=== PATIENT | female | born 1970 | race Caucasian/White ===

== ENCOUNTER 2019-11-04 13:35 | Emergency (ER) | payer OTHER, SELFPAY ==
[2019-11-04 13:41] VITALS: BP 114/63; PULSE 70; RESP 20; TEMP 36.3; O2SAT 100
--- NOTE | 2019-11-04 14:33 | ED.DENTAL ---
HPI - Dental/Oral General Chief complaint: Dental/Oral Stated complaint: tooth ache Time Seen by Provider: 11/04/19 14:33 Source: patient and RN notes reviewed Mode of arrival: ambulatory Limitations: no limitations History of Present Illness HPI Narrative: 49 year old female who presents to [facility] care with complaints of dental pain to 2 left upper molars for the past week. Patient has poor dentition with numerous teeth missing and dental caries noted. Patient states that she has been unable to eat anything but soups and mashed potatoes for the past 4 days because she is having so much dental discomfort and eating anything she has to chew is impossible. left upper molars # 13 & 14 noted to have decay with #13 tooth actually loose, redness and swelling of gums surrounding these teeth and also in top of mouth on the left side near noted teeth. Patient is tearful stating pain is 10/10, sharp throbbing, has been taking Tylenol and Motrin with no decrease in her discomfort. MD Complaint: tooth pain Location: Tooth # (13,14) Onset (ago): week(s) (1) Duration: constant Severity: severe Severity scale (1-10): >10 Relieving factors: nothing Exacerbating factors: chewing and cold Context: history of dental caries and poor dental care Associated symptoms: gum swelling Treatment prior to arrival: topical analgesic and oral analgesic Related Data Home Medications Medication Instructions Recorded Confirmed umeclidinium [Incruse Ellipta] 1 inh INHALATION DAILY 11/04/19 11/04/19 Allergies Allergy/AdvReac Type Severity Reaction Status Date / Time erythromycin base AdvReac Nausea and Verified 11/04/19 13:49 Vomiting Review of Systems Review of Systems: Narrative: CONSTITUTIONAL: Denies fever, chills, or sweats. EYES: Denies visual changes, redness, or discharge. ENT: Denies rhinorrhea, congestion, sore throat, or otalgia.acute dental pain with dental caries CARDIOVASCULAR: Denies chest pain, palpitations, or edema. RESPIRATORY: Denies cough or dyspnea. GASTROINTESTINAL: Denies abdominal pain, nausea, vomiting, or diarrhea. GENITOURINARY: Denies dysuria or hematuria. SKIN: Denies rash or itching. MUSCULOSKELETAL: Denies back pain, joint pain, or myalgia. NEUROLOGIC: Denies headache, numbness, or weakness. PSYCHIATRIC: Denies anxiety or depression. All systems reviewed & are unremarkable except as noted in HPI and below PMFSH Past Medical History Medical History (Updated 11/06/19 @ 15:14 by Yudelka Jnoes NP) COPD (chronic obstructive pulmonary disease) Surgical History Surgical History (Updated 11/06/19 @ 15:15 by Yudelka Jones NP) History of lumpectomy of left breast Social History Social History (Updated 11/06/19 @ 15:18 by Yudelka Jones NP) Smoking packs per day: 1 Smoking cigarettes per day: 20.0 Years smoked: 35 Smoking pack-years: 35.00 Smoking status: Current every day smoker Tobacco type: cigarettes Living arrangements: alone Gender identity (if verbalized by the patient): Female Comments At time of signature, agree with nursing past medical, surgical, social history. There is no relevant family history pertinent to the presenting complaint Exam Narrative: Exam Narrative: GENERAL: Well-appearing, well-nourished, and in no acute distress. HEAD: Normocephalic, atraumatic. EYES: PERRLA and EOMI. ENT: Nares clear, no rhinorrhea or epistaxis. Mucous membranes moist.#13 and #14 teeth with caries with gums red and swollen and redness to top of mouth on left side, #13 tooth actually is loose, numerous teeth missing with poor dentition of remaining teeth. NECK: Supple.no lymphadenopathy CHEST: Clear to auscultation. No respiratory distress.SAO2 100% on room air HEART: Regular rate and rhythm. No murmur heard. Normal peripheral pulses. ABDOMEN: Soft, nontender, nondistended, normal active bowel sounds. EXTREMITIES: Normal range of motion. No edema. SKIN: Warm, dry, no rash. NEURO: No foc
== END 2019-11-04 15:05 | disposition home or self-care (01) ==
PROVIDERS: Emergency Provider Registered Nurse; PCP Internal Medicine
DX: K08.89 Other specified disorders of teeth and supporting structures (principal); K04.7 Periapical abscess without sinus; J44.9 Chronic obstructive pulmonary disease, unspecified
CPT/HCPCS: 99213; G0463

== ENCOUNTER 2021-09-22 12:41 | Emergency (ER) | payer OTHER, SELFPAY ==
--- NOTE | 2021-09-22 12:53 | ED.SOB ---
HPI - SOB/Dyspnea General Chief Complaint: Upper Respiratory Infection Stated Complaint: Shortness of Breath/Asthma Time Seen by Provider: 09/22/21 12:54 Source: patient and RN notes reviewed Mode of arrival: ambulatory Limitations: no limitations History of Present Illness HPI Narrative: 51-year-old female presents concern for shortness of breath. She reports history of COPD, she got cold systems approximately 1 week ago and recently started having increased shortness of breath, work of breathing, wheezing. Reports she has been using her rescue inhaler and her at home daily medications without relief. She denies fever, body aches, chills, sweats. She has been vaccinated for COVID. MD elicited complaint: shortness of breath Related Data Home Medications Medication Instructions Recorded Confirmed umeclidinium [Incruse Ellipta] 1 inh INHALATION DAILY 11/04/19 11/04/19 albuterol sulfate INHALATION 09/22/21 citalopram mg 09/22/21 fluticasone propion-salmeterol inh INHALATION 09/22/21 fluticasone propion-salmeterol INHALATION 09/22/21 [Wixela Inhub] gabapentin 09/22/21 tiotropium bromide [Spiriva with INHALATION 09/22/21 HandiHaler] trazodone 09/22/21 Allergies Allergy/AdvReac Type Severity Reaction Status Date / Time erythromycin base AdvReac Nausea and Verified 11/04/19 13:49 Vomiting Review of Systems Review of Systems: CONSTITUTIONAL: Reports malaise. Denies chills, sweats, or fever. EYES: Denies visual changes, redness, or discharge. ENT: Reports rhinorrhea, congestion CARDIOVASCULAR: Denies chest pain, palpitations, or edema. RESPIRATORY: Reports cough, wheezing, dyspnea. GASTROINTESTINAL: Denies abdominal pain, nausea, vomiting, diarrhea SKIN: Denies rash or itching. MUSCULOSKELETAL: Denies myalgia. NEUROLOGIC: Denies headache. All systems reviewed & are unremarkable except as noted in HPI and below PMFSH Past Medical History Medical History (Updated 09/22/21 @ 13:34 by Genesis Rodriguez NP) COPD (chronic obstructive pulmonary disease) Surgical History Surgical History (Updated 11/06/19 @ 15:15 by Yudelka Jones NP) History of lumpectomy of left breast Social History Social History (Updated 11/06/19 @ 15:18 by Yudelka Jones NP) Smoking packs per day: 1 Smoking cigarettes per day: 20.0 Years smoked: 35 Smoking pack-years: 35.00 Smoking status: Current every day smoker Tobacco type: cigarettes Gender identity (if verbalized by the patient): Female Comments At time of signature, agree with nursing past medical, surgical, social and family history. There is no relevant family history pertinent to the presenting complaint Exam Narrative: GENERAL: Well-appearing, well-nourished, and in no acute distress. HEAD: Normocephalic EYES: PERRLA, conjunctivae clear ENT: Nares clear. Mucous membranes moist. Oropharynx not erythematous without lesions. Tonsils not enlarged and without exudate, no drooling, no hoarseness, no trismus, uvula midline. NECK: Supple. No lymphadenopathy CHEST: Scattered inspiratory and expiratory wheeze, aeration fair. No rhonchi, rales, or stridor. Patient in slightly tripod position, tachypneic HEART: Regular rate and rhythm. No murmur heard. SKIN: Warm, dry, no rash. NEURO: Alert and oriented x3. PSYCH: Normal mood and affect Course Course Emergency Course: Patient is aware of diagnosis, understands and agrees to treatment plan. Anticipatory guidance given. Patient agrees to follow-up as directed and is aware of reasons to seek care at the emergency department. Portions of this record may have been created with voice recognition software Level of Care: Express Care Visit Reevaluation(s) Reevaluation #1: No conversational dyspnea, tachypnea slightly improved, aeration improved, wheezing greatly improved after DuoNeb and Solu-Medrol IM Date: 09/22/21 Time: 13:29 Vital Signs Vital signs: Reviewed. MDM - SOB/Dyspnea MDM Narrative
[2021-09-22 12:56] VITALS: BP 111/62; PULSE 71; RESP 26; TEMP 36.9; O2SAT 98
[2021-09-22 12:59] VITALS: BP 111/62; PULSE 71; RESP 26; TEMP 36.9; O2SAT 98
[2021-09-22] MEDS: IPRATROPIUM BR 0.02% INH SOLN 0.5 MG/2.5 ML VIAL INHALATION (13:05)
[2021-09-22] MEDS: ALBUTEROL SULFATE NEB 2.5 MG/3 ML INH INHALATION (13:05)
[2021-09-22] MEDS: methylPREDNISolone ACETATE 40 MG/ML VIAL IM (13:09)
[2021-09-22 13:40] VITALS: PULSE 80; RESP 20; O2SAT 100
== END 2021-09-22 13:40 | disposition home or self-care (01) ==
PROVIDERS: Emergency Provider Nurse Practitioner
DX: R06.02 Shortness of breath (principal); J44.9 Chronic obstructive pulmonary disease, unspecified; F17.210 Nicotine dependence, cigarettes, uncomplicated
CPT/HCPCS: 94640; 96372; 99213; G0463; J1030

== ENCOUNTER 2022-07-04 08:03 | Emergency (ER) | payer OTHER, SELFPAY ==
--- NOTE | 2022-07-04 08:06 | ED.SKABFB ---
HPI - Skin/Abscess/Foreign Bdy General Chief complaint: Skin/Abscess/Foreign Body Stated complaint: poss lice / infection in back of head Time Seen by Provider: 07/04/22 08:29 Source: patient and RN notes reviewed Mode of arrival: ambulatory Limitations: no limitations History of Present Illness HPI narrative: 51-year-old female presents with concern for a wound on her head. Reports she had lice about a week ago, she treated lysis. Reports however she had been scratching her head and caused a wound that she thinks has gotten infected. She reports pain, drainage on the back of her scalp. She reports general malaise and fatigue. She denies fever. MD complaint: abscess/boil Related Data Home Medications Medication Instructions Recorded Confirmed umeclidinium 62.5 mcg/actuation 1 inh inhalation DAILY 11/04/19 09/22/21 blister powder for inhalation (Incruse Ellipta) albuterol sulfate 90 mcg/actuation 2 inh inhalation TID PRN Shortness 09/22/21 09/22/21 aerosol inhaler Of Breath citalopram 40 mg tablet 40 mg PO DAILY 09/22/21 09/22/21 fluticasone 250 mcg-salmeterol 50 2 inh inhalation DAILY 09/22/21 09/22/21 mcg/dose blistr powdr for inhalation (Wixela Inhub) fluticasone 55 mcg-salmeterol 14 1 inh inhalation BID 09/22/21 09/22/21 mcg/actuation breath activated powder tiotropium bromide 18 mcg capsule 1 cap inhalation DAILY 09/22/21 09/22/21 with inhalation device (Spiriva with HandiHaler) trazodone 100 mg tablet 100 mg PO DAILY 09/22/21 09/22/21 Allergies Allergy/AdvReac Type Severity Reaction Status Date / Time erythromycin base Allergy Rash Verified 09/22/21 16:13 clindamycin AdvReac Diarrhea Verified 09/22/21 16:13 Review of Systems Review of Systems: CONSTITUTIONAL: Reports malaise, fatigue. Denies chills, sweats, or fever. EYES: Denies redness, or discharge. ENT: Denies rhinorrhea, congestion, swollen lips, swollen tongue CARDIOVASCULAR: Denies chest pain, palpitations, or edema. RESPIRATORY: Denies cough or dyspnea. GASTROINTESTINAL: Denies abdominal pain, nausea, vomiting SKIN: Reports tender area on the back of her scalp with purulent drainage MUSCULOSKELETAL: Denies joint pain or myalgia. NEUROLOGIC: Denies headache. All systems reviewed & are unremarkable except as noted in HPI and below PMFSH Past Medical History Medical History (Updated 07/04/22 @ 08:27 by Genesis Rodriguez NP) COPD (chronic obstructive pulmonary disease) Surgical History Surgical History (Updated 11/06/19 @ 15:15 by Yudelka Jones NP) History of lumpectomy of left breast Social History Social History (Updated 11/06/19 @ 15:18 by Yudelka Jones NP) Smoking packs per day: 1 Smoking cigarettes per day: 20.0 Years smoked: 35 Smoking pack-years: 35.00 Smoking status: Current every day smoker Tobacco type: cigarettes Gender identity (if verbalized by the patient): Female Comments At time of signature, agree with nursing past medical, surgical, social and family history. There is no relevant family history pertinent to the presenting complaint Exam Narrative: GENERAL: Well-appearing, well-nourished, and in no acute distress. HEAD: Normocephalic, atraumatic. EYES: PERRLA, conjunctivae clear, and EOMI. ENT: Mucous membranes moist. NECK: Supple. No lymphadenopathy CHEST: Clear to auscultation. No respiratory distress. HEART: Regular rate and rhythm. SKIN: Warm, dry. 0.5 cm wound noted to the posterior scalp with pink tissue bed with yellow purulence drainage. Approximately 1 cm surrounding area of induration without fluctuation noted. No nits or lice noted NEURO: Alert and oriented x3. PSYCH: Normal mood and affect Course Course Emergency Course: Patient is aware of diagnosis, understands and agrees to treatment plan. Anticipatory guidance given. Patient agrees to follow-up as directed and is aware of reasons to seek care at the emergency department. Portions of this
[2022-07-04 08:11] VITALS: BP 122/58; PULSE 74; RESP 16; TEMP 37.2; O2SAT 100
== END 2022-07-04 08:40 | disposition home or self-care (01) ==
PROVIDERS: Emergency Provider Nurse Practitioner; PCP Internal Medicine
DX: L08.9 Local infection of the skin and subcutaneous tissue, unspecified (principal); J44.9 Chronic obstructive pulmonary disease, unspecified; F17.210 Nicotine dependence, cigarettes, uncomplicated
CPT/HCPCS: 87070; 87147; 87181; 87186; 87205; 99213; G0463

== ENCOUNTER 2022-12-29 09:44 | Emergency (ER) | payer OTHER, SELFPAY ==
[2022-12-29 09:53] VITALS: BP 129/61; PULSE 72; RESP 16; TEMP 37.1; O2SAT 100
--- NOTE | 2022-12-29 10:02 | ED.EYEPROB ---
HPI - Eye Problem General Chief complaint: Eye Problems Stated complaint: headache/dizzy/left eye Time Seen by Provider: 12/29/22 10:02 Source: patient and RN notes reviewed History of Present Illness HPI Narrative: Patient is a 52-year-old female who presents to urgent care with complaints of left eye swelling. Patient states that she was outside working in the [employer] yesterday but does not remember anything biting her. Patient states she has had a slight sinus headache for the last week but did not have any facial swelling. Patient denies any trauma or injury to the eye. Denies any changes in vision. No other acute complaints. No acute distress noted. Patient aware of the plan of care. Some parts of this dictation were generated by voice recognition software and may contain typographical and/or grammatical inaccuracies. Related Data Allergies Allergy/AdvReac Type Severity Reaction Status Date / Time erythromycin base Allergy Rash Verified 09/22/21 16:13 clindamycin AdvReac Diarrhea Verified 09/22/21 16:13 Review of Systems Review of Systems: CONSTITUTIONAL: Denies fever, chills, or sweats. EYES: Reports of left eye swelling ENT: Denies rhinorrhea, congestion, sore throat, or otalgia. CARDIOVASCULAR: Denies chest pain, palpitations, or edema. RESPIRATORY: Denies cough or dyspnea. GASTROINTESTINAL: Denies abdominal pain, nausea, vomiting, or diarrhea. GENITOURINARY: Denies dysuria or hematuria. SKIN: Denies rash or itching. MUSCULOSKELETAL: Denies back pain, joint pain, or myalgia. NEUROLOGIC: Denies headache, numbness, or weakness. All other systems reviewed are negative, except as documented in HPI. [facility] Past Medical History Medical History (Updated 12/29/22 @ 10:09 by ALDEN Ladd) COPD (chronic obstructive pulmonary disease) Surgical History Surgical History (Updated 11/06/19 @ 15:15 by Yudelka Jones NP) History of lumpectomy of left breast Social History Social History (Updated 11/06/19 @ 15:18 by Yudelka Jones NP) Smoking packs per day: 1 Smoking cigarettes per day: 20.0 Years smoked: 35 Smoking pack-years: 35.00 Smoking status: Current every day smoker Tobacco type: cigarettes Living arrangements: alone Gender identity (if verbalized by the patient): Female Comments At the time of my signature, I reviewed and agree with the nursing past medical, surgical, social, and family history. There is no relevant family history pertinent to the patient complaint. Exam Narrative: GENERAL: This is a well-nourished, well-developed patient, in no apparent distress. HEAD: normocephalic, atraumatic. Mild to moderate edema to the left cheek without ecchymosis or erythema EYES: PERRL. Bilateral Sclera clear/white. Vision is grossly intact. [id number] lower left eyelid edema, mild upper left eyelid edema without erythema. EARS: External ears normal, auditory canals clear and without drainage, TMs normal without perforation. Hearing grossly intact. NOSE: External nose normal with no obvious nasal discharge, nares without redness, no rhinorrhea. THROAT: Mucous membranes moist, posterior pharynx clear. NECK: Neck supple SKIN: warm, intact with no suspicious lesions or rash, good texture and turgor. NEURO: awake, alert, and oriented to person, place and time. There were no obvious focal neurologic abnormalities. EXTREMITIES: No clubbing, cyanosis, or edema. Course Course Level of Care: Express Care Visit Vital Signs Vital signs: Vital Signs Temperature 98.8 F 12/29/22 09:53 Pulse Rate 72 12/29/22 09:53 Respiratory Rate 16 12/29/22 09:53 Blood Pressure 129/61 12/29/22 09:53 Pulse Oximetry 100 12/29/22 09:53 Oxygen Delivery Room Air 12/29/22 09:53 Temperature 98.8 F 12/29/22 09:53 Pulse Rate 72 12/29/22 09:53 Respiratory Rate 16 12/29/22 09:53 Blood Pressure 129/61 12/29/22 09:53 Pulse Oximetry 100 12/29/22 09:53 Oxygen D
== END 2022-12-29 10:24 | disposition home or self-care (01) ==
PROVIDERS: Emergency Provider Nurse Practitioner Family
DX: L03.213 Periorbital cellulitis (principal); F17.210 Nicotine dependence, cigarettes, uncomplicated; J44.9 Chronic obstructive pulmonary disease, unspecified
CPT/HCPCS: 99213; G0463

== ENCOUNTER 2023-04-06 16:12 | Emergency (ER) | payer OTHER, SELFPAY ==
[2023-04-06 16:25] VITALS: BP 118/70; PULSE 79; RESP 16; TEMP 36.8; O2SAT 100
--- NOTE | 2023-04-06 17:11 | ED.SKABFB ---
HPI - Skin/Abscess/Foreign Bdy General Chief complaint: Skin/Abscess/Foreign Body Stated complaint: boil on left leg Source: patient Mode of arrival: ambulatory Limitations: no limitations History of Present Illness HPI narrative: 52-year-old female presents for complaint of abscess to the left lower leg. Endorses redness and tenderness. She states she has been getting boils to her skin, mostly the legs, over the past few years. She has been applying Neosporin, Prid, and using heating pad. She states the sites burst on her own. She states this one drained yesterday after using heating pad. She denies any other locations of active abscesses at this time. She denies nausea, vomiting, fevers or chills. She does not have a PCP at this time. Related Data Allergies Allergy/AdvReac Type Severity Reaction Status Date / Time erythromycin base Allergy Rash Verified 09/22/21 16:13 clindamycin AdvReac Diarrhea Verified 09/22/21 16:13 Review of Systems Review of Systems: CONSTITUTIONAL: Denies body aches, fever, chills, or sweats. EYES: Denies visual changes, redness, or discharge. ENT: Denies rhinorrhea, congestion CARDIOVASCULAR: Denies chest pain, palpitations, or edema. RESPIRATORY: Denies cough or dyspnea. GASTROINTESTINAL: Denies abdominal pain, nausea, vomiting, or diarrhea. SKIN: reports boil left lower leg MUSCULOSKELETAL: Denies back pain, joint pain, or myalgia. NEUROLOGIC: Denies headache, numbness, tingling, or weakness. [facility] Past Medical History Medical History COPD (chronic obstructive pulmonary disease) Surgical History Surgical History History of lumpectomy of left breast Social History Social History Smoking packs per day: 1 Smoking cigarettes per day: 20.0 Years smoked: 35 Smoking pack-years: 35.00 Smoking status: Current every day smoker Tobacco type: cigarettes Living arrangements: alone Gender identity (if verbalized by the patient): Female Comments At time of signature, I have reviewed and agree with nursing past medical, surgical, social and family history unless otherwise noted. Please see nursing chart for further information. There is no relevant family history pertinent to the presenting complaint Exam Narrative: GENERAL: Well-appearing HEAD: Normocephalic, atraumatic. EYES: conjunctivae clear, and EOMI. ENT: Mucous membranes moist. Oropharynx without edema, erythema or lesions. NECK: Supple. No lymphadenopathy CHEST: Clear to auscultation. HEART: Regular rate and rhythm. SKIN: Warm, dry. left lateral lower leg with 2 cm erythematous firm abscess.Mild tenderness. No fluctuance, surrounding induration, or active drainage. NEURO: Alert and oriented x3. Course Course Emergency Course: Patient is aware of diagnosis, understands and agrees to treatment plan. Anticipatory guidance given. Patient agrees to follow-up as directed and is aware of reasons to seek care at the emergency department. Portions of this record may have been created with voice recognition software Level of Care: Express Care Visit Vital Signs Vital signs: Vital Signs Temperature 98.3 F 04/06/23 16:25 Pulse Rate 79 04/06/23 16:25 Respiratory Rate 16 04/06/23 16:25 Blood Pressure 118/70 04/06/23 16:25 Pulse Oximetry 100 04/06/23 16:25 Oxygen Delivery Room Air 04/06/23 16:25 Temperature 98.3 F 04/06/23 16:25 Pulse Rate 79 04/06/23 16:25 Respiratory Rate 16 04/06/23 16:25 Blood Pressure 118/70 04/06/23 16:25 Pulse Oximetry 100 04/06/23 16:25 Oxygen Delivery Room Air 04/06/23 16:25 Reviewed MDM - Skin/Abscess/Foreign Bdy MDM Narrative Medical decision making narrative: Discussed physical exam findings, no indication for I&D at this time. Rx abx. Advised suppo
== END 2023-04-06 17:17 | disposition home or self-care (01) ==
PROVIDERS: Emergency Provider Nurse Practitioner Family
DX: L02.416 Cutaneous abscess of left lower limb (principal); F17.210 Nicotine dependence, cigarettes, uncomplicated; J44.9 Chronic obstructive pulmonary disease, unspecified
CPT/HCPCS: 99213; G0463

== ENCOUNTER 2025-02-08 09:39 | Emergency (ER) | payer OTHER, SELFPAY ==
--- OUTSIDE RECORDS SUMMARY | 2025-02-08 09:41 | XMS_ITS | Clinical Summary ---
Author Organization [facility] Address [address] [place] [address] Care Team Providers Care Inspector [employer] Name Role Phone Tia Pyle ALVARO Primary Care Provider [phone] Allergies Active Allergy Reactions Criticality Noted Date Comments Clindamycin Diarrhea Medium 08/15/2023 C diff Erythromycin Nausea & Vomiting Low 11/04/2018 Sertraline Mental status changes High 08/15/2023 Suicidal thoughts Medications albuterol 2.5 mg /3 mL (0.083 %) nebulizer solutionIndicat ions:Moderate persistent asthma, unspecified whether complicated Take 3 mL (2.5 mg total) by nebulization every 6 (six) hours as needed for wheezing 75 mL 08/15/19 24 Active aspirin 81 mg chewable tabletIndicatio ns:Thrombocytos is Take 1 tablet (81 mg total) by mouth daily 30 tablet 07/26/19 25 026 Active albuterol HFA (PROVENTIL HFA,VENTOLIN HFA,PROAIR HFA) 90 mcg/actuation inhalerIndicati ons:Moderate persistent asthma, unspecified whether complicated Inhale 2 puffs every 4 (four) hours as needed for wheezing 2 each 2 11/22/19 25 Active fluticasone propion-salmete roL (ADVAIR DISKUS) 250-50 mcg/dose diskus inhalerIndicati ons:Moderate persistent asthma, unspecified whether complicated Inhale 1 puff 2 (two) times a day Rinse mouth with water after use. Do not swallow. 180 each 3 11/22/[address] (CYMBALTA) 30 mg capsuleIndicati ons:Anxiety and depression Take 2 capsules (60 mg total) by mouth daily 60 capsule 11 01/10/20 25 Active hydrOXYzine (VISTARIL) 25 mg capsuleIndicati ons:Anxiety and depression Take 1 capsule (25 mg total) by mouth every 4 (four) hours as needed for itching or anxiety 60 capsule 3 01/10/20 25 Active traZODone (DESYREL) 100 mg tabletIndicatio ns:Primary insomnia Take 1 tablet (100 mg total) by mouth nightly 90 tablet 01/30/20 25 026 Active traZODone (DESYREL) 100 mg tabletIndicatio ns:Primary insomnia Take 1 tablet (100 mg total) by mouth nightly 90 tablet 07/26/19 25 025 Discontin ued(Reord er) Active Problems Problem Noted Date Diagnosed Date Severe episode of recurrent major depressive disorder, without psychotic features 10/15/2024 Assessment & Plan (10/15/2024 12:30 PM CDT): Will start on Hydroxyzine and Venlafaxine. Will continue to monitor. Will re- evaluate in 1 month. PHQ-9 24. Orders: hydrOXYzine (ATARAX) 50 mg tablet; Take 1 tablet (50 mg total) by mouth 3 (three) times a day as needed for itching BMI 21.0-21.9, adult 10/15/2024 Assessment & Plan (10/15/2024 12:30 PM CDT): Weight appropriate for patient. Cigarette nicotine dependence without complicati on 10/16/2023 Assessment & Plan (04/17/2024 10:33 AM CDT): Down to about a pack/week Assessment & Plan (10/16/2023 10:37 AM CDT): Smokes approx 1/2 ppd Anxiety and depression 08/15/2023 Assessment & Plan (01/09/2025 10:57 AM CDT): Chronic. KIN score 21, severe anxiety. PHQ 24 in the past. Currently on Cymbalta 30 mg. Room to go up. -Will increase to 60 mg -Hydroxyzine 25 mg as needed for anxiety -Consider addition of seroquel if no improvement -RTC in 2 weeks Assessment & Plan (04/17/2024 10:35 AM CDT): Chronic, danilo Dad 03/28; his 80[age] birthday would have been 04/17 Does not wish to start medication at this time Has been handling things Assessment & Plan (10/16/2023 10:36 AM CDT): danilo Alberto Stopped Venlafaxine; did not like how it made her feel Does not wish to be on medications currently Assessment & Plan (08/15/2023 12:41 PM EXCHANGE ADMINISTRATOR): Increased anxiety and depression; previously on Celexa; was not noticing much on it. Has been off meds for past year Start Venlafaxine 75 mg daily Follow up 2 months Primary insomnia 08/15/2023 Assessment & Plan (04/17/2024 10:35 AM CDT): danilo Alberto Has recently restarted the Trazodone; did not take during summer due to dad being ill Continue Trazodone 100 mg nightly Assessment & Plan (10/16/2023 10:37 AM CDT): Stable, currently well controlled Continue Trazodone 100 mg nightly Assessment & Plan (08/15/2023 12:41 PM EXCHANGE ADMINISTRATOR): Restart Trazodone 100 mg nightly Moderate persistent asthma 08/15/2023 Assessment & Plan (10/16/2023 10:37 AM CDT): Chronic, continues to smoke Advair BID, Albuterol inhaler and nebulizer PRN History of breast cancer 08/15/2023 Encounters Date Type Department Care Team Description 01/09/2025 10:00 AM CDT Office Visit [facility] at [address] [place] [address] Jarod Thao MD Anxiety and depression (Primary Dx) 01/09/2025 Orders Only [facility] at [address] [place] [address] Jarod Thao MD Anxiety and depression (Primary Dx) from Last 3 Months Immunizations Immunization Administration Dates Next Due Influenza, Quadrivalent, Spl it, Intramuscular 04/25/2019 Influenza, Quadrivalent, Spl it, Preservative Free, Intramuscular 08/15/2023 Influenza, Unspecified 10/15/2024(Deferr ed: Patient Refused),10/15/2024(Deferred: Patient Refused),04/17/2024(Deferred: Patient Refused),03/24/2024(Deferred: Patient Refused),03/24/2024(Deferred: Patient Refused),05/25/2023(Deferred: Patient Refused),04/23/2023(Deferred: Patient Refused),04/23/2022(Deferred: Patient Refused),04/23/2022(Deferred: Patient Refused) Pneumococcal Conjugate Pcv20 08/15/2023 Pneumococcal Polysaccharide PPV23 08/20/2018 Tdap 09/20/2018 Surgical History Surgery Date Site/Laterality Comments BREAST LUMPECTOMY 07/24/2008 - 07/23/2009 Left AUGMENTATION MAMMAPLASTY 07/24/2004 - 07/23/2005 Bilater al Medical History Medical History Date Comments Breast cancer (HCC) 2009 left History of radiation therapy 2009 lef t breast ca Smoking Asthma COPD (chronic obstructive pulmonary disease) (HC C) Family History Medical History Relation Name Comments Diabetes Father Heart attack Mother Heart attack Mother's Brother Relation Name Status Comments Father Mother Mother's Brother Social History Tobacco Use Types Packs/Day Years Used Date Smoking Tobacco: Every Day Cigarettes Tobacco Cessation:Ready to Q uit: Not Asked; Counseling Given: Not Answered Alcohol Use Standard Drinks/Week Comments Yes 0 (1 standard drink = 0.6 oz pur e alcohol) occasional [facility] Utilities Answer Date Recorded In the past 12 months has th e [employer], gas, oil, or water [employer] threatened to shut off services in your home? Yes 08/15/2023 Humiliation, Afraid, Rape, and Kick questionnair e Answer Date Recorded Within the last year, have y ou been afraid of your partner or ex-partner? No 08/15/2023 Within the last year, have y ou been humiliated or emotionally abused in other ways by your partner or ex-partner? No Within the last year, have y ou been kicked, hit, slapped, or otherwise physically hurt by your partner or ex-partner? No 08/15/2023 Within the last year, have y ou been raped or forced to have any kind of sexual activity by your partner or ex-partner? No 08/15/2023 Social Connection and Isolat ion Panel [NHANES] Answer Date Recorded In a typical week, how many times do you talk on the phone with family, friends, or neighbors? More than three times a week 08/15/2023 How often do you get togethe r with friends or relatives? Never 08/15/2023 How often do you attend chur ch or adventist services? Never 08/15/2023 Do you belong to any clubs o r organizations such as protestant groups, unions, fraternal or athletic groups, or school groups? No 08/15/2023 How often do you attend meet ings of the clubs or organizations you belong to? Never 08/15/2023 Are you , , di vorced, , never , or living with a partner? Living with partner 08/15/2023 AUDIT-C Answer Date Recorded Q1: How often do you have a drink containing alcohol? Never 01/09/2025 Q2: How many drinks containi ng alcohol do you have on a typical day when you are drinking? Patient does not drink Q3: How often do you have si x or more drinks on one occasion? Never 01/09/2025 Overall Financial Resource Strain (CARDIA) Answe r Date Recorded How hard is it for you to pa y for the very basics like food, housing, medical care, and heating? Somewhat hard 08/15/2023 PHQ-2 Answer Date Recorded PHQ-2 Total Score (If total score is 3 or more points, staff should administer the PHQ-9) 6 10/15/2024 [facility] - Occupational Stress Questionnaire Answer Date Recorded Do you feel stress - tense, restless, nervous, or anxious, or unable to sleep at night because your mind is troubled all the time - these days? Rather much 08/15/2023 Exercise Vital Sign Answer Date Recorde d On average, how many days pe r week do you engage in moderate to strenuous exercise (like a brisk walk)? 7 days 08/15/2023 On average, how many minutes do you engage in exercise at this level? 30 min 08/15/2023 Hunger Vital Sign Answer Date Recorded Within the past 12 months, y ou worried that your food would run out before you got the money to buy more. Never true 08/15/19 24 Within the past 12 months, t he food you bought just didn't last and you didn't have money to get more. Never true 08/15/2023 PRAPARE - Transportation Answer Date Re corded In the past 12 months, has l ack of transportation kept you from medical appointments or from getting medications? No 07/25 In the past 12 months, has l ack of transportation kept you from meetings, work, or from getting things needed for daily living? No 08/15/2023 Housing Stability Vital Sign Answer Oscar e Recorded In the last 12 months, was t here a time when you were not able to pay the mortgage or rent on time? No 08/15/2023 In the last 12 months, how many places have you lived? 1 08/15/2023 In the last 12 months, was t here a time when you did not have a steady place to sleep or slept in a skilled nursing (including now)? No 08/15/2023 PHQ-9 Answer Date Recorded PHQ-9 Total Score 24 10/15/2024 Comments No Sex and Gender Information Value Date Recorded Sex Assigned at Not on file Legal Sex Female 7:05 PM EXCHANGE ADMINISTRATOR Gender Identity Not on file Sexual Orientation Not on file Obstetrics History Para Term AB IAB SAB Ectopic Multiple Livin g Live Births 2 2 2 Date Outcome GA Total Labor Labor/2nd/3rd Weight Sex Type Anes PTL Rakel A1 A5 Name Clin Term Term Last Filed Vital Signs Vital Sign Reading Time Taken Comments Blood Pressure 136/68 01/09/2025 10:15 AM CDT Pulse 55 01/09/2025 10:15 AM CDT Temperature 36.6 C (97.8 F) 04/17/2024 10:21 AM CDT Respiratory Rate 20 01/09/2025 10:15 AM CDT Oxygen Saturation 99% 01/09/2025 10:15 AM CDT Inhaled Oxygen Concentration - - Weight 54 kg (119 lb) 01/09/2025 10:15 AM CDT Height 160 cm (5' 2.99) 01/09/2025 10:15 AM CDT Body Mass Index 21.09 01/09/2025 10:15 AM CDT Plan of Treatment Health Maintenance Due Date Last Done Comments Cervical Cancer Screening 1969 Colon Cancer Screening-DNA Stool 1969 Hepatitis C Screening 1969 Hepatitis B Screening 1987 Regular Well Visit/Exam 18-64 1987 Zoster Vaccine (1 of 2) 2019 Covid-19 Vaccine (2023-2 5 season) 2024 03/28/2021, 02/27/2021 Breast Cancer Screening-Mammogram 08/18/2024 08/18/2023, 09/10/2020, 09/04/2018, Additional history exists Influenza Vaccine (#1) 2025 08/15/2023, 2018 Depression Screening 10/15/2025 10/15/2024, 10/15/2024, 04/17/2024, Additional history exists DTaP/Tdap/Td Vaccine (2 - Td or Tdap) 09/20/2028 09/20/2018 Pneumococcal vaccine <65 Completed 08/15/2023, 07/25 Procedures Procedure Name Priority Date/Time Associated Diagnosis Comments SCREENING MAMMOGRAM BILATERAL W DAVID W IMPLANTS Schedule Routine, Read Routine (OP Routine) 08/18/2023 2:10 PM EXCHANGE ADMINISTRATOR Screening mammogram for breast cancer from Last 3 Months or Most Recently Relevant to Health Maintenance Results * Screening Mammogram Bilateral W David W Implants (08/18/2023 2:10 PM EXCHANGE ADMINISTRATOR) Anatomical Region Laterality Modality Breast Bilateral Mammography 08/18/2023 3:00 PM EXCHANGE ADMINISTRATOR Impressions 08/18/2023 3:00 PM EXCHANGE ADMINISTRATOR There is no mammographic evidence of malignancy. A 1 year screening mammogram is recommended. BI-RADS: 2 - Benign. The patient has been or will be contacted. The patient will be entered into a reminder system with a target due date of 1 year for her next mammogram. Electronically signed by: Delano Mcwilliams M.D. Narrative 08/18/2023 3:00 PM EXCHANGE ADMINISTRATOR EXAMINATION: SCREENING MAMMOGRAM BILATERAL W DAVID W IMPLANTS ORDERING HEALTHCARE PROVIDER: TIA PYLE HISTORY: Routine screening mammography. COMPARISON: 09/10/2020, 09/04/2018, 11/04/2008, 10/20/2008 TECHNIQUE: Implant included and implant displaced CC and MLO views of the bilateral breasts were obtained with digital technique using breast tomosynthesis with C view. Computer aided detection was utilized. FINDINGS: DENSITY: There are scattered fibroglandular elements in the bilateral breasts. BREASTS: Bilateral subpectoral saline breast implants appear unchanged and intact. The presence of implants limits the sensitivity of mammography. There are no suspicious masses, suspicious calcifications, or other suspicious findings in either breast. There has been no suspicious interval change. Tia Pyle NP IMG MAMMO PROCEDURES Final Resul t from Last 3 Months or Most Recently Relevant to Health Maintenance Insurance Care Teams Inspector [employer] Relationship Specialty Start Date End Date Tia Pyle NP PCP - General Family Medicine 08/15/23
--- OUTSIDE RECORDS SUMMARY | 2025-02-08 09:41 | XMS_ITS | Referral Summary ---
Author Organization [facility] Address [address] [place] [address] Care Team Providers Care Assessment Clinician Name Role Phone Tia Pyle ALVARO Primary Care Provider Encounters Date Type Department Care Team Description 01/09/2025 Orders Only [facility] at [address] [place] [id number] Jarod Thao MD Anxiety and depression (Primary Dx) 01/09/2025 10:00 AM CDT Office Visit [facility] at [address] [place] [id number] Jarod Thao MD Anxiety and depression (Primary Dx) from Last 3 Months Allergies Active Allergy Reactions Criticality Noted Date [...] mg total) by mouth daily 30 tablet 11 07/26/19 25 026 Active albuterol HFA (PROVENTIL [...] & Plan (04/17/2024 10:35 AM CDT): Chronic, stable Dad 03/28; his 80[age] birthday would have been [birth year]/17 Does not wish to start medication at this time Has been handling things Assessment & Plan (10/16/2023 10:36 AM CDT): Chronic, stable Stopped Venlafaxine; did not like how it made her feel Does not wish to be on medications currently Assessment & Plan (08/15/2023 12:41 PM PHOTOCOMPOSING MACHINE OPERATOR): Increased anxiety and depression; previously on Celexa; was not noticing much on it. Has been off meds for past year Start Venlafaxine 75 mg daily Follow up 2 months Primary insomnia 08/15/2023 Assessment & Plan (04/17/2024 10:35 AM CDT): Chronic, stable Has recently restarted the Trazodone; did not take during summer due to dad being ill Continue Trazodone 100 mg nightly Assessment & Plan (10/16/2023 10:37 AM CDT): Stable, currently well controlled Continue Trazodone 100 mg nightly Assessment & Plan (08/15/2023 12:41 PM PHOTOCOMPOSING MACHINE OPERATOR): Restart Trazodone 100 mg nightly Moderate persistent asthma 08/15/2023 Assessment & Plan (10/16/2023 10:37 AM CDT): Chronic, continues to smoke Advair BID, Albuterol inhaler and nebulizer PRN History of breast cancer 08/15/2023 Immunizations Immunization Administration Dates Next Due Influenza, Quadrivalent, Spl it, Intramuscular 04/25/2019 Influenza, Quadrivalent, Spl it, Preservative Free, Intramuscular 08/15/2023 Influenza, Unspecified 10/15/2024(Deferr ed: Patient Refused),10/15/2024(Deferred: Patient Refused),04/17/2024(Deferred: Patient Refused),03/24/2024(Deferred: Patient Refused),03/24/2024(Deferred: Patient Refused),05/25/2023(Deferred: Patient Refused),04/23/2023(Deferred: Patient Refused),04/23/2022(Deferred: Patient Refused),04/23/2022(Deferred: Patient Refused) Pneumococcal Conjugate Pcv20 08/15/2023 Pneumococcal Polysaccharide PPV23 08/20/2018 Tdap 09/20/2018 Social History Tobacco Use Types Packs/Day Years Used Date Smoking Tobacco: Every Day Cigarettes Tobacco Cessation:Ready to Q uit: Not Asked; Counseling Given: Not Answered Alcohol Use Standard Drinks/Week Comments Yes 0 (1 standard drink = 0.6 oz pur e alcohol) occasional [facility] Utilities Answer Date Recorded In the past 12 months has [facility] [employer], gas, oil, or water [employer] threatened to shut off services in your [...] often do you attend chur ch or yarsani services? Never 08/15/2023 Do you belong to any clubs o r organizations such as faith groups, unions, fraternal or athletic groups, or [...] staff should administer the PHQ-9) 6 10/15/2024 [facility] Answer Date Recorded [...] place to sleep or slept in a care home (including now)? No 08/15/2023 PHQ-9 Answer Date Recorded PHQ-9 Total Score 24 10/15/2024 Comments No Sex and Gender Information Value Date Recorded Sex Assigned at Not on file Legal Sex Female 7:05 PM PHOTOCOMPOSING MACHINE OPERATOR Gender Identity Not on file Sexual Orientation Not on file Last Filed Vital Signs Vital Sign Reading [...] 01/09/2025 10:15 AM CDT Plan of Treatment Not on file Procedures Procedure Name Priority Date/Time Associated Diagnosis Comments SCREENING MAMMOGRAM BILATERAL W DAVID W IMPLANTS Schedule Routine, Read Routine (OP Routine) 08/18/2023 2:10 PM PHOTOCOMPOSING MACHINE OPERATOR Screening mammogram for breast cancer from Last 3 Months or Most Recently Relevant to Health Maintenance Results * Screening Mammogram Bilateral W David W Implants (08/18/2023 2:10 PM PHOTOCOMPOSING MACHINE OPERATOR) Anatomical Region Laterality Modality Breast Bilateral Mammography 08/18/2023 3:00 PM PHOTOCOMPOSING MACHINE OPERATOR Impressions 08/18/2023 3:00 PM PHOTOCOMPOSING MACHINE OPERATOR There is no mammographic evidence of malignancy. A 1 year screening mammogram is recommended. BI-RADS: 2 - Benign. The patient has been or will be contacted. The patient will be entered into a reminder system with a target due date of 1 year for her next mammogram. Electronically signed by: Delano Mcwilliams M.D. Narrative 08/18/2023 3:00 PM PHOTOCOMPOSING MACHINE OPERATOR EXAMINATION: SCREENING MAMMOGRAM BILATERAL W DAVID W [...] There has been no suspicious interval change. us Tia Pyle NP IMG MAMMO PROCEDURES Final Resul t from Last 3 Months or Most Recently Relevant to Health Maintenance Insurance Care Teams Assessment Clinician Relationship Specialty Start Date End Date Tia Pyle NP PCP - General Family Medicine 08/15/23
--- OUTSIDE RECORDS SUMMARY | 2025-02-08 09:41 | XMS_ITS | Clinical Summary ---
Author Organization [facility] Address [address] [place] [address] Phone Care Team Providers Care Dowel Pin Man Name Role Phone Jazzy Webb MD Primary Care Provider [phone] Allergies Active Allergy Reactions Criticality Noted Date Comments Erythromycin Vomiting 11/04/2018 Medications citalopram (CELEXA) 10 MG Tablet Take by mouth daily. Active traZODone (DESYREL) 100 MG Tablet Take 100 mg by mouth nightly. Active fluticasone (FLONASE) 50 MCG/ACT Suspension 1-2 Sprays by Nasal route daily. Use in each nostril as directed. Active albuterol (PROAIR HFA) 108 (90 Base) MCG/ACT Aerosol Solution take 2 Puffs by inhalation every 4 hours as needed. Active Fluticasone-Mc meterol (AIRDUO RESPICLICK 113/14) 113-14 MCG/ACT AEROSOL POWDER, BREATH ACTIVATED take 1 Inhaler by inhalation 2 times daily. Active predniSONE (DELTASONE) 10 MG Tablet TAKE 3 TABLETS DAILY X3 DAYS, THEN 2 TABLETS DAILY X3 DAYS, THEN 1 TABLET DAILY X3 DAYS 18 Tab 9 Active Social History Tobacco Use Types Packs/Day Years Used Date Smoking Tobacco: Every Day Cigarettes Alcohol Use Standard Drinks/Week Comments Yes 0 (1 standard drink = 0.6 oz pur e alcohol) ONCE IN A BLUE SNYDER Comments No Sex and Gender Information Value Date Recorded Sex Assigned at Not on file Legal Sex Female 10:44 PM CDT Gender Identity Not on file Sexual Orientation Not on file Last Filed Vital Signs Vital Sign Reading Time Taken Comments Blood Pressure 124/59 11/04/2018 8:20 AM CDT Pulse 96 11/04/2018 8:20 AM CDT Temperature 37.3 C (99.1 F) 11/04/2018 6:47 AM CDT Respiratory Rate 16 11/04/2018 7:26 AM CDT Oxygen Saturation 100% 11/04/2018 8:20 AM CDT Inhaled Oxygen Concentration - - Weight 53.5 kg (118 lb) 11/04/2018 6:47 AM CDT Height 162.6 cm (5' 4) 11/04/2018 6:47 AM CDT Body Mass Index 20.25 11/04/2018 6:47 AM CDT Plan of Treatment Health Maintenance Due Date Last Done Comments Hepatitis C Virus (HCV) Screening 1969 TdaP Immunization 1969 Hepatitis B Immunization (1 of 3 - 19+ 3-dose series) 1988 Colonoscopy 2014 Colorectal Cancer Screening 2014 Mammogram 09/04/2019 09/04/2018 Cologuard 2019 Immunochemical Fecal Occult Blood 2019 Pneumococcal Immunization (5 0+ years) (1 of 1 - PCV) 2019 Zoster Immunization (1 of 2) 2019 SARS-COV-2 Immunization (3 - 2023- season) 2024 03/28/2021, 02/27/2021 Influenza Immunization (Seas on Ended) 2025 Respiratory Syncytial Virus (RSV) Immunization (Adult) (1 - 1-dose 75+ series) 2044 Discussion re Starting/Frequency of Mammograms Discontinued 09/04/2018 Human Papillomavirus (HPV) Immunization Aged Out No longer eligible based on patient's age to complete this topic Meningococcal Immunization (ACWY) Aged Out No longer eligible based on patient's age to complete this topic Rotavirus Immunization Aged Out No lo nger eligible based on patient's age to complete this topic Procedures Procedure Name Priority Date/Time Associated Diagnosis Comments VANDANA SCREENING HINA W IMPL DIGITAL W CAD W GABRIELA Routine 09/04/2018 12:57 PM [employer] Encounter for screening mammogram for malignant neoplasm of breast from Last 3 Months or Most Recently Relevant to Health Maintenance Results * VANDANA SCREENING HINA W IMPL DIGITAL W CAD W GABRIELA (09/04/2018 12:57 PM [employer]I [employer] MECHANIC) Anatomical Region Laterality Modality breast Bilateral Mammography 09/04/2018 12:2 6 PM [employer] MECH[employer]IC Narrative 09/04/2018 2:58 PM [employer]I LIFT MECHANIC - VANDANA SCREENING HINA W IMPL DIGITAL W CAD W GABRIELA BILATERAL DIGITAL SCREENING MAMMOGRAM 3D/2D WITH CAD WITH MEDIOLATERAL OBLIQUE CRANIOCAUDAL WITH AUGMENTATION: 09/04/2018 The study was acquired using digital technology and interpreted from soft copy. Current study was also evaluated with ICAD version 7.2. CLINICAL: Patient presents for new baseline routine screening. S/P bilateral augmentation. Previous history of breast cancer. No family history of breast cancer. Patient has no complaints. COMPARISONS: No prior exams were available for comparison. BREAST TISSUE:There are scattered fibroglandular densities in both breasts. FINDINGS: Bilateral breast implants are intact. No significant masses, calcifications, or other findings are seen in either breast. IMPRESSION: BI-RAD 1 NEGATIVE There is no mammographic evidence of malignancy. A 1 year screening mammogram is recommended. The patient has been or will be contacted. The patient will be entered into a reminder system with a target due date of 1 year for her next screening exam. Electronically signed by: Tristin potter/lucia:09/04/2018 14:38:49 Abstract Clerk: Maggi Coronel (R)(Andrew), [facility] letter sent: Normal Exam Reading location: [facility] BI-RADS: 1 Negative Procedure Note Tristin Elizondo MD - 09/04/2018 - VANDANA SCREENING HINA W IMPL DIGITAL W CAD W GABRIELA BILATERAL DIGITAL SCREENING MAMMOGRAM 3D/2D WITH CAD WITH MEDIOLATERAL OBLIQUE CRANIOCAUDAL WITH AUGMENTATION: 09/04/2018 The study was acquired using digital technology and interpreted from soft copy. Current study was also evaluated with ICAD version 7.2. CLINICAL: Patient presents for new baseline routine screening. S/P bilateral augmentation. Previous history of breast cancer. No family history of breast cancer. Patient has no complaints. COMPARISONS: No prior exams were available for comparison. BREAST TISSUE:There are scattered fibroglandular densities in both breasts. FINDINGS: Bilateral breast implants are intact. No significant masses, calcifications, or other findings are seen in either breast. IMPRESSION: BI-RAD 1 NEGATIVE There is no mammographic evidence of malignancy. A 1 year screening mammogram is recommended. The patient has been or will be contacted. The patient will be entered into a reminder system with a target due date of 1 year for her next screening exam. Electronically signed by: Tristin potter/lucia:09/04/2018 14:38:49 Abstract Clerk: Maggi Enriquez)(M), [facility] letter sent: Normal Exam Reading location: [place] BI-RADS: 1 Negative us Jazzy Webb MD IMG MAMMO ORDERABLES Final Re sult from Last 3 Months or Most Recently Relevant to Health Maintenance Insurance MEDICAID [facility] Care Teams Dowel Pin Man Relationship Specialty Start Date End Date Jazzy Webb MD [address] [place] [address] PCP - General Internal Medicine 08/31/18
[2025-02-08 09:45] VITALS: BP 131/73; PULSE 89; RESP 20; TEMP 36.6; O2SAT 100
--- NOTE | 2025-02-08 09:52 | ED_ITS ---
HPI - General Adult General Chief complaint: Wound/Laceration Stated complaint: Skin Sore Time Seen by Provider: 02/08/25 09:52 Source: patient Mode of arrival: ambulatory Limitations: no limitations History of Present Illness HPI narrative: 54 y/o female presented for c/o head lice for one week, and reports 'sores' due to the scratching. Endorses open sore to the left neck, which she punctured with a needle 2 days ago and endorses pus. Also with a tender nondraining sore to the back of the head. Pt reports a history of MRSA. She has used OTC lotion and used Nix but says it is not improving. Related Data Home Medications ?Medication ?Instructions ?Recorded ?Confirmed ?Last Taken ?Type albuterol sulfate 90 mcg/actuation inhalation 02/08/25 Unknown History aerosol inhaler aspirin 81 mg chewable tablet 02/08/25 Unknown History duloxetine 30 mg capsule,delayed mg PO 02/08/25 Unknown History release hydroxyzine pamoate 25 mg capsule mg 02/08/25 Unknown History trazodone 100 mg tablet mg 02/08/25 Unknown History Allergies Allergy/AdvReac Type Severity Reaction Status Date / Time erythromycin base Allergy Rash Verified 02/08/25 09:56 clindamycin AdvReac Diarrhea Verified 02/08/25 09:56 Review of Systems Review of Systems: CONSTITUTIONAL: Denies body aches, fever, chills, or sweats. EYES: Denies visual changes, redness, or discharge. ENT: Denies rhinorrhea, congestion CARDIOVASCULAR: Denies chest pain, palpitations, or edema. RESPIRATORY: Denies cough or dyspnea. GASTROINTESTINAL: Denies abdominal pain, nausea, vomiting, or diarrhea. SKIN: per HPI MUSCULOSKELETAL: Denies back pain, joint pain, or myalgia. NEUROLOGIC: Denies headache, numbness, tingling, or weakness. [facility] Past Medical History Medical History COPD (chronic obstructive pulmonary disease) Surgical History Surgical History History of lumpectomy of left breast Social History Social History Smoking packs per day: 1 Smoking cigarettes per day: 20.0 Years smoked: 35 Smoking pack-years: 35.00 Smoking status: Current every day smoker Tobacco type: cigarettes Living arrangements: alone Gender identity (if verbalized by the patient): Female Comments At time of signature, I have reviewed and agree with nursing past medical, surgical, social and family history unless otherwise noted. Please see nursing chart for further information. There is no relevant family history pertinent to the presenting complaint Exam Narrative: GENERAL: Well-appearing HEAD: Normocephalic, atraumatic. EYES: conjunctivae clear, and EOMI. ENT: Mucous membranes moist. Oropharynx without edema, erythema or lesions. NECK: Supple. No lymphadenopathy CHEST: Clear to auscultation. HEART: Regular rate and rhythm. SKIN: Warm, dry. left base of scalp with scabbing open wound approx 1.5 cm, scant amount purulent drainage noted, tender. Mid posterior scalp with 2cm erythematous abscess, fluctuant center no active drainage, tender. Several red scabbed areas to upper back and arms c/w scratching, nondraining. lice nits noted. NEURO: Alert and oriented x3. Course Course Emergency Course: Patient is aware of diagnosis, understands and agrees to treatment plan. Anticipatory guidance given. Patient agrees to follow-up as directed and is aware of reasons to seek care at the emergency department. Portions of this record may have been created with voice recognition software Level of Care: Express Care Visit Vital Signs Vital signs: Vital Signs Temperature 98 F 02/08/25 09:45 Pulse Rate 89 02/08/25 09:45 Respiratory Rate 20 02/08/25 09:45 Blood Pressure 131/73 02/08/25 09:45 Pulse Oximetry 100 02/08/25 09:45 Oxygen Delivery Room Air 02/08/25 09:45 Temperature 98 F 02/08/25 09:45 Pulse Rate 89 02/08/25 09:45 Respiratory Rate 20 02/08/25 09:45 Blood Pressure 131/73 02/08/25 09:45 Pulse Oximetry 100 02/08/25 09:45 Oxygen Delivery Room Air 02/08/25 09:45 Reviewed Procedures Abscess I/D scalp: Date of Incision: 02/08/25 Technique: needle aspiration (#18g) Irrigation: No Packing used?: none I&D Results: Pus Abcess I&D Additional Comments: The procedure and its alternatives were reviewed with patient. Risks were reviewed with patient including infection and damage to nearby structures. Patient provided verbal informed consent. The patient was positioned appropriately. Shared decision making, pt declined lidocaine with I&D and is agreeable to #18g aspiration. Single straight puncture made to center of most fluctuant area. Moderate amount of thick purulent discharge expelled with manual pressure. Pt tolerated the procedure well, no complications. Medical Decision Making MDM Narrative Medical decision making narrative: Discussed physical exam findings. Will send po ivermectin due to pt's open wounds to scalp, along with abx. Tolerated abscess drainage with #18g. Advised she is contagious and recommended precautions. Advised supportive measures and signs/symptoms to go to the ER. Pt is appropriate for outpt treatment and f/u. Differential Diagnosis Differential Diagnosis: Viral exanthema, contact dermatitis, allergic dermatitis, eczema, urticaria, insect bites, impetigo, tinea, folliculitis, abscess, pediculosis capitis Vital Signs Vital Signs: Vital Signs Temperature 98 F 02/08/25 09:45 Pulse Rate 89 02/08/25 09:45 Respiratory Rate 20 02/08/25 09:45 Blood Pressure 131/73 02/08/25 09:45 Pulse Oximetry 100 02/08/25 09:45 Oxygen Delivery Room Air 02/08/25 09:45 Temperature 98 F 02/08/25 09:45 Pulse Rate 89 02/08/25 09:45 Respiratory Rate 20 02/08/25 09:45 Blood Pressure 131/73 02/08/25 09:45 Pulse Oximetry 100 02/08/25 09:45 Oxygen Delivery Room Air 02/08/25 09:45 Discharge Plan Discharge Clinical Impression: Abscess of scalp, Pediculosis capitis Patient Disposition: Home Condition: Stable Instructions: Antibiotic Form, Pediculosis (ED), Abscess (ED) Additional Instructions: You had an abscess drained today. You may shower and Cleanse with warm soapy water Warm compresses at least 4 times a day to the site to help expel any additional drainage. Take antibiotic as directed, take with food Tylenol and ibuprofen every 8 hours for pain as needed Follow up with your primary care physician in 3 days for a wound check. Go to the Emergency Department immediately if you develop any of the following symptoms: Fevers, Increased redness, pain, or swelling around where your abscess was, generalized weakness or vomiting or any other concerns Head lice are spread by?direct [id number] contact with an infested person. They may also be spread by sharing personal items such as campbell, brushes, other hair-care items, towels, pillows, hats, and other head coverings. Take ivermectin as directed. Take with food. These steps may help you get rid of lice: ? Check other household members for lice and nits.?Treat anyone who has signs of lice. ? Use lotions and shampoos.?Choose from among several nonprescription lotions and shampoos designed to kill lice. Apply the product according to package instructions.You may need to repeat treatment with the lotion or shampoo in about 9 to 10 days after the first application. Be sure to check the age recommendations of the drugs before using them on children. ? Comb wet hair.?Use a fine-toothed or nit comb to physically remove the lice from wet hair. Repeat every 3 to 4 days for at least two weeks. This method may be used in combination with other treatments. It is usually recommended as the first line treatment for infants younger than 2 months. ? Wash items.?Wash bedding, stuffed animals, clothing and hats with hot, soapy water ? at least 130 F (54 C) ? and dry them at high heat for at least 20 minutes. ? Seal unwashable items.?Place them in an airtight bag for two weeks. ? Vacuum.?Vacuum the floor and furniture well. ? Wash campbell and brushes.?Use very hot, soapy water ? at least 130 F (54 C) ? or soak campbell and brushes in rubbing alcohol for an hour. Patient Language: Paraguayan Prescriptions: New doxycycline hyclate 100 mg tablet 100 mg PO BID 7 Days Qty: 14 0RF ivermectin 6 mg tablet 12 mg PO ONCE 14 Days Qty: 4 0RF Rx Instructions: as a single dose. Repeat in one week. No Action trazodone 100 mg tablet aspirin 81 mg tablet,chewable albuterol sulfate 90 mcg/actuation HFA aerosol inhaler INHALATION hydroxyzine pamoate 25 mg capsule duloxetine 30 mg capsule,delayed release(DR/EC) PO Follow-up/Referrals: Pyle,Madonna Cisneros [Primary Care Provider] - Time of Disposition: 10:36
== END 2025-02-08 10:40 | disposition home or self-care (01) ==
PROVIDERS: Emergency Provider Nurse Practitioner Family; PCP Nurse Practitioner
DX: L02.811 Cutaneous abscess of head [any part, except face] (principal); B85.0 Pediculosis due to Pediculus humanus capitis; F17.210 Nicotine dependence, cigarettes, uncomplicated; J44.9 Chronic obstructive pulmonary disease, unspecified; Z79.82 Long term (current) use of aspirin
CPT/HCPCS: 10060; 99213; G0463